=== PATIENT | male | born 1945 | race Caucasian/White ===

== ENCOUNTER 2017-11-05 22:04 | Observation (INO) | payer MEDICARE, OTHER ==
[~2017-11-05] VITALS: Ht 175.3 cm; Wt 83.9 kg
[2017-11-05 22:06] VITALS: BP 143/68
[2017-11-05] MEDS ORDERED: MICARDIS40 MG PO (22:12)
[2017-11-05] MEDS ORDERED: ASPIR 8181 MG PO (22:12)
[2017-11-05] MEDS ORDERED: PRAVASTATIN SOD40 MG PO (22:13)
[2017-11-05] MEDS ORDERED: UNICOMPLEX M TA1 TA1 PO (22:13)
[2017-11-05 22:22] LABS: ABSOLUTE BASOPHILS 0.1 thou/uL (0.0-0.2); ABSOLUTE EOSINOPHILS 0.2 thou/uL (0.0-0.7); ABSOLUTE LYMPHOCYTES 3.4 thou/uL (0.8-5.3); ABSOLUTE MONOCYTES 1.2 thou/uL (0.0-1.2); ABSOLUTE NEUTROPHILS 7.5 thou/uL (1.6-8.1); EOSINOPHILS 1.6 %; HEMOGLOBIN 14.4 gm/dL (14.0-18.0); LYMPHOCYTES 27.6 %; MCH 27.9 pg (26.0-34.0); MCHC 33.4 g/dL (28.0-37.0); MCV 83.4 fL (80.0-100.0); MONOCYTES 9.3 %; MPV 9.1 fl. (7.2-11.1); NUCLEATED RBCS 0 /100WBC; PLATELET COUNT* 248 thou/uL (150-400); POLYS 60.5 %; RBC 5.15 mil/uL (4.50-6.00); RDW-CV 13.4 % (10.5-14.5); WBC 12.5 thou/uL (4.0-11.0)
[2017-11-05 22:51] LABS: APTT 27.8 Seconds (25.0-31.3); INR 1.1; PROTIME 10.4 Seconds (9.20-11.50)
[2017-11-05 23:16] LABS: ANION GAP 8 mmol/L (7-16); BUN 14 mg/dL (7-18); CALCIUM 8.7 mg/dL (8.5-10.1); CHLORIDE 103 mmol/L (98-107); CO2 32 mmol/L (21-32); GLUCOSE 109 mg/dL (70-99); POTASSIUM 3.6 mmol/L (3.5-5.1); SODIUM 143 mmol/L (136-145)
[2017-11-05 23:26] LABS: ALKALINE PHOSPHATASE 84 U/L (46-116); LIPASE 86 U/L (73-393); NT-PRO BRAIN NAT PEPTIDE 167 pg/mL (<300); SGOT 17 U/L (15-37); SGPT 26 U/L (30-65); TOTAL BILIRUBIN 0.4 mg/dL (<0.1-1.0); TOTAL PROTEIN 6.9 g/dL (6.4-8.2); TROPONIN-I LEVEL <0.06 ng/mL (<0.06)
[2017-11-06] VITALS (7 sets, daily range): BP systolic 132–168; BP diastolic 44–81
--- NOTE | 2017-11-06 13:51 | EKG ---
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: NEIL : 1945 Requested By: Kia Sandoval Order Number: [id number] MD: Ash Ashton Measurements Intervals [place] Rate: 61 P: 37 MD: 236 QRS: -27 QRSD: 97 T: 54 QT: 377 QTc: 380 Interpretive Statements Sinus rhythm Ventricular premature complex Borderline left axis deviation Low voltage, precordial leads No previous ECG available for comparison Electronically Signed On 11-06-2017 13:50:56 CHEESE WEIGHER by Ash Ashton [email or web address] <ELECTRONICALLY SIGNED> By: Ash Ashton MD, [facility] 11/06/17 1350 06 06 Ash Ashton MD, [facility] /EPI
--- NOTE | 2017-11-06 13:58 | EKG ---
[place] [address] ELECTROCARDIOGRAM REPORT Name: BALWINDER CONWAY Room: [address] M.R.#: [id number] Admission: 11/06/17 Attend Phys: Zane Reveles, Discharge: Date of : 49 Report #: [id number] THIS REPORT FOR: //name// [facility] Test Date: 2017-11-06 Test Time: 07:49:26 Pat Name: BALWINDER CONWAY Department: Room: [place] [address] Gender: M Director Industrial Relations: BULMARO : 1945 Requested By: Kia Sandoval Order Number: [id number] MD: Ash Ashton Measurements Intervals [place] Rate: 58 P: 65 TX: 258 QRS: -44 QRSD: 95 T: 53 QT: 427 QTc: 420 Interpretive Statements Sinus rhythm Sinus pause secondary to nonconducted pac Prolonged TX interval Left anterior fascicular block RSR' in V1 or V2, right VCD or RVH Electronically Signed On 11-06-2017 13:58:12 CONSTRUCTION SAFETY CONSULTANT by Ash Ashton [email or web address] <ELECTRONICALLY SIGNED> By: Ash Ashton MD, FAC 11/06/17 1358 0749 0749 Ash Ashton MD, [facility] /EPI
[2017-11-07 00:46] VITALS: BP 119/49
[2017-11-07 04:08] VITALS: BP 120/52
[2017-11-07 04:45] LABS: CHOLESTEROL 169 mg/dL (<200); HDL CHOLESTEROL 54 mg/dL (>40); LDL CHOLESTEROL 106 mg/dL (<100); TC:HDL 3.1 Ratio (Not establshd); TRIGLYCERIDE 46 mg/dL (<150); VLDL 9 mg/dL (<40)
[2017-11-07 04:46] LABS: SERUM ASSESSMENT Clear
[2017-11-07 08:00] VITALS: BP 127/51
[2017-11-07 11:00] VITALS: BP 127/51
[2017-11-07 11:10] VITALS: BP 127/51
--- NOTE | 2017-11-08 09:19 | CON ---
[address] [address] CONSULTATION Name: MANBALWINDER Ban Room: [address] Adan Cosby#: [id number] Admission: 11/06/17 Attend Phys: Zane Reveles, Discharge: 11/07/17 Date of : 49 Report #: [id number] THIS REPORT FOR: //name// CC: Walker Rich DATE OF SERVICE: 11/06/2017 HISTORY OF PRESENT ILLNESS: The patient is a 72-year-old white male who was last seen in the hospital after he complained of chest pain. The history is obtained from the patient. There are minimal old records available. The patient states that he presented in 2001 with throat discomfort. He came here to [place] and told he has had a heart attack. He was transferred by ambulance to [facility]. He underwent a heart catheterization by Dr. Falk and was found to have high-grade stenosis, circumflex artery. He had a stent placed in the marginal branch of the circumflex. 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 The left internal mammary artery graft to the left anterior descending artery, right internal mammary artery graft to the marginal branch of circumflex and a free left radial artery graft to the diagonal artery. He has actually done well since that time, although he is not very active. He used to see Dr. Diego, but has not seen Dr. Diego since about 4 years ago when his last stress test was. However, denies recent chest pain, shortness of breath, palpitation, syncope, peripheral edema. He was doing well until last night at home watching TV when he felt a pressure in his chest, went into his back. Denied the pain radiating to his jaw or arms. There was no associated shortness of breath, diaphoresis, or nausea. He denied any belch with the episode. He has had no recent blood in stool. Took some antiacid and did not seem to help. He has had no recent fever or cough. Denied any trauma to his chest or rash. He finally drove himself to the Emergency Room after about an hour and a half the pain has had persisted. He was given nitroglycerin did seem to help. Then, given another GI cocktail. The pain eventually resolved after about 3 hours. He was admitted overnight. I was asked to see him for further evaluation and treatment. PAST MEDICAL HISTORY: Significant for tonsillectomy, appendectomy, hernia repair, hypertension, and hyperlipidemia. MEDICATIONS: Include Pravachol, Micardis, aspirin. ALLERGIES: He has no known drug allergies. SOCIAL HISTORY: He smoked for 40 years, but quit in 2001. No alcohol abuse. He is . He and his live here in [place]. 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 [address] CONSULTATION Name: MANBALWINDER Room: [place] [address] JUVE Cosby#: [id number] Admission: 11/06/17 Attend Phys: Zane Reveles, Discharge: 11/07/17 Date of : 49 Report #: [id number] FAMILY HISTORY: Negative for heart disease. REVIEW OF SYSTEMS: He has had no history of stroke, asthma, peptic ulcer disease, liver disease, kidney disease, cancer, psychiatric illness, chronic skin condition, arthritis. PHYSICAL EXAMINATION: GENERAL: Revealed an elderly male, lying in bed, appeared in no distress. VITAL SIGNS: He had a blood pressure 130/40, pulse 60. He is afebrile. HEENT: He is anicteric. Conjunctivae pink. Mucous membranes moist. NECK: Veins nondistended. No carotid bruits. CHEST: Clear to auscultation. CARDIOVASCULAR: Regular rate and rhythm. ABDOMEN: Soft, nontender. EXTREMITIES: Had no edema. Dorsalis pedis pulse 3+ bilaterally. SKIN: Warm, dry. NEUROLOGIC: Nonfocal. LYMPH: No adenopathy. MUSCULOSKELETAL: No joint effusions. PSYCHIATRIC: Mood is appropriate. DIAGNOSTIC DATA: His ECG on arrival last night showed a sinus arrhythmia, first degree AV block, PVC, but there was no significant ST or T-wave change noted. RADIOLOGICAL DATA: His ECG today shows sinus rhythm, first degree AV block, left axis deviation, no ST or T-wave change. His workup so far, he had a chest x-ray done last night that showed mild cardiomegaly, clear lung weiner. CT scan of the chest using a PE protocol and contrast showed no dissection, no pulmonary embolus. LABORATORY DATA: Sodium 143, creatinine 1.0, glucose 109. Liver function studies were normal. Troponin all 0.06. His white blood cell count 12.5, hemoglobin 14.4. IMPRESSION AND RECOMMENDATIONS: 1. Chest pain. Suspect gastroesophageal reflux disease. No evidence of acute coronary syndrome. After a period of observation I think it is reasonable to discharge the patient. I would then consider an outpatient nuclear stress test since he has an abnormal resting ECG. At this time, I am going to continue an aspirin a day. 2. Hypertension. The patient [place] [address] CONSULTATION Name: BALWINDER CONWAY Room: [address] Adan Cosby#: [id number] Admission: 11/06/17 Attend Phys: Zane Reveles, Discharge: 11/07/17 Date of : 49 Report #: [id number] 3. Hyperlipidemia. The patient is on a statin drug. 4. Previous tobacco abuse. <ELECTRONICALLY SIGNED> By: Ash Ashton MD, FACC 11/08/17 0919 1111 [id number] Ashton MD, FACC /nt
== END 2017-11-07 12:24 | disposition home or self-care (01) ==
LOC: M.ERS 22:04 → M.TBA-ER 11-06 00:05 → M.2W 11-06 01:01
PROVIDERS: Internal Medicine Cardiovascular Disease; Personal Emergency Response Attendant; ADMIT Family Medicine
DX: I25.110 Atherosclerotic heart disease of native coronary artery with unstable angina pectoris (principal); I10 Essential (primary) hypertension; E78.5 Hyperlipidemia, unspecified; M85.80 Other specified disorders of bone density and structure, unspecified site; I25.2 Old myocardial infarction; Z95.1 Presence of aortocoronary bypass graft; Z87.891 Personal history of nicotine dependence; Z95.5 Presence of coronary angioplasty implant and graft

== ENCOUNTER → 2021-10-14 | Outpatient (CLI) | payer OTHER ==
[~2021-10-14] MED LIST: ASPIR 8181 MG PO; MICARDIS40 MG PO; PRAVASTATIN SOD40 MG PO; UNICOMPLEX M TA1 TA1 PO
== END ==
LOC: M.LAB 11:40
PROVIDERS: ATTEND Internal Medicine Gastroenterology
DX: Z01.812 Encounter for preprocedural laboratory examination (principal); Z20.822 Contact with and (suspected) exposure to COVID-19